=== PATIENT | male | born 1955 | race Caucasian/White ===

== ENCOUNTER 2022-12-14 19:50 | Emergency (ER) | payer OTHER ==
--- OUTSIDE RECORDS SUMMARY | 2022-12-14 19:57 | XMS REPORT | Continuity of Care Document ---
:1955 Author Organization Formerly [facility] t Address [address] [place] [address] Care Team Providers Name Role Phone Dilshad SUMMERS, Nitin Primary Care Physician Nitin Yung MD Attending Clinician Payers Payer Name Policy Type Policy Number Effective Date Expiration Date S ource Problems Condition Condition Condition Status Onset Resolution Last Treating Co mments Source Name Details Category Date Date Treatment Clinician Date Vitamin D Vitamin D Disease Active 2021-12 Overview: [facility] deficiency deficiency 1-[address] 00:[facility]: [facility] 00 note l might be different from the original. 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 8 X ray ; Degenerat heather change in the lumbar spine Fatty Fatty Disease Active Overview: [facility] i liver liver 05-[address] 00:00: [facility] 00 note l might be different from the original. 05/09/18 US: fatty infiltrat ion. Scattered simple cysts are seen in the liver. The largest is in the right hepatic lobe and measures 4.2 x 5.8 x 5.5 cm. Atrial Atrial Disease Recurre Overview: Metho di fibrillati fibrillati nce 04-[address] on on 00:00: g of this [facility]ospita 00 note l might be different from the original. S/p PM HLD HLD Disease Recurre [facility] (hyperlipi (hyperlipi nce 04-16 st demia) demia) 00:00: Hospita 00 l RLS RLS Disease Recurre [facility] (restless (restless nce 04-16 st legs legs 00:00: Hospita syndrome) syndrome) 00 l Anxiety Anxiety Disease Recurre Method i associated associated nce 04-16 with with 00:00: Hospita depression depression 00 l Aortic Aortic Disease Active [facility] valve valve 04-16 regurgitat regurgitat 00:00: Ho spita ion, ion, 00 l acquired acquired Obesity, Obesity, Disease Active Metho di unspecifie unspecifie 04-16 st d obesity d obesity 00:00: Hosp yovanny severity, severity, 00 l unspecifie unspecifie d obesity d obesity type type Pacemaker Pacemaker Disease Active Met hodi 04-16 st 00:00: Hospita 00 l JUVENAL on JUVENAL on Disease Active [facility] CPAP CPAP 04-16 00:00: Hospita 00 l Essential Essential Disease Recurre Me thodi hypertensi hypertensi nce 16 st on on 00:00: Hospita 00 l Gastroesop Gastroesop Disease Recurre [facility] hageal hageal nce 16 st reflux reflux 00:00: Hospita disease disease 00 l without without esophagiti esophagiti s s Allergies, Adverse Reactions, Alerts Allergy Allergy Status Severity Reaction(s) Onset Inactive Treating Comm ents Source Name Type Date Date Clinician Rosuvast Propensi Active Method i atin ty to 05-07 st adverse 00:00: Hospita reaction 00 l s to drug Family History Family Member Diagnosis Comments Start Date Stop Date Source Natural brother Colon cancer [facility] Natural brother Cancer [facility] Natural father Heart disease [facility] Natural mother Heart disease [facility] Natural sister Liver cancer [facility] Natural sister Other [facility] Social History Social Habit Start Date Stop Date Quantity Comments Source Alcohol intake 2022-10-04 2022-10-04 Current drinker [facility] 00:00:00 00:00:00 of alcohol Hospital (finding) Tobacco use and 2022-07-13 2022-07-13 Smokeless tobacco [facility] exposure 00:00:00 00:00:00 non-user Hospital Alcohol Comment 2017-03-28 2017-03-28 Socially [facility] 00:00:00 00:00:00 Hospital Sex [birth year] [facility] 00:00:00 00:00:00 Hospital Smoking Status Start Date Stop Date Source Never smoked tobacco [facility] Medications Ordered Filled Start Stop Current Ordering Indication Dosage Frequency Signature Comments Components Source Medication Medication Date Date Medication? Clinician (SIG) Name Name FLUoxetine 2021-12 Yes [id number] TAKE 1 [facility] (PROzac) 40 2-[address] MG capsule 00:00: (40 MG Hospi ta 00 TOTAL) BY l MOUTH DAILY. FLUoxetine 2021-12 Yes [id number] TAKE 1 [facility] (PROzac) 40 2-[address] MG capsule 00:00: (40 MG Hospi ta 00 TOTAL) BY l MOUTH DAILY. FLUoxetine 2021-12 Yes [id number] TAKE 1 [facility] (PROzac) 40 2-[address] MG capsule 00:00: (40 MG Hospi ta 00 TOTAL) BY l MOUTH DAILY. FLUoxetine 2021-12 Yes [id number] TAKE 1 [facility] (PROzac) 40 2-[address] MG capsule 00:00: (40 MG Hospi ta 00 TOTAL) BY l MOUTH DAILY. FLUoxetine 2021-12- No [id number] TAKE 1 [facility] (PROzac) 40 1-24 12-[address] MG capsule 00:00: 00:00 DAILY Hospi ta 00 :00 l FLUoxetine 2021-12- No [id number] TAKE 1 [facility] (PROzac) 40 1-24 12-[address] MG capsule 00:00: 00:00 DAILY Hospi ta 00 :00 l FLUoxetine 2021-12- No [id number] TAKE 1 [facility] (PROzac) 40 12-25 12- CAPSULE st MG capsule 00:00: 00:00 DAILY Hospi ta 00 :00 l FLUoxetine 2021-12- No [id number] TAKE 1 [facility] (PROzac) 40 12-25- CAPSULE st MG capsule 00:00: 00:00 DAILY Hospi ta 00 :00 l metoprolol 2021-12 Yes [id number] 25mg QD Take 1 M ethodi succinate 1-14 tablet (25 st XL 00:00: mg total) Hospita (TOPROL-XL) 00 by mouth l 25 mg 24 hr daily. tablet amIODarone 2021-12 Yes 200mg QD Take 1 Meth eva (PACERONE) 1-[address] 200 MG 00:00: (200 mg Hospita tablet 00 total) by l mouth daily. metoprolol 2021-12 Yes [id number] 25mg QD Take 1 M ethodi succinate 1-14 tablet (25 st XL 00:00: mg total) Hospita (TOPROL-XL) 00 by mouth l 25 mg 24 hr daily. tablet amIODarone 2021-12 Yes 200mg QD Take 1 Meth eva (PACERONE) 1-[address] 200 MG 00:00: (200 mg Hospita tablet 00 total) by l mouth daily. metoprolol 2021-12 Yes [id number] 25mg QD Take 1 M ethodi succinate 1-14 tablet (25 st XL 00:00: mg total) Hospita (TOPROL-XL) 00 by mouth l 25 mg 24 hr daily. tablet amIODarone 2021-12 Yes 200mg QD Take 1 Meth eva (PACERONE) 1-[address] 200 MG 00:00: (200 mg Hospita tablet 00 total) by l mouth daily. metoprolol 2021-12 Yes [id number] 25mg QD Take 1 M ethodi succinate 1-14 tablet (25 st XL 00:00: mg total) Hospita (TOPROL-XL) 00 by mouth l 25 mg 24 hr daily. tablet amIODarone 2021-12 Yes 200mg QD Take 1 Meth eva (PACERONE) 1-[address] 200 MG 00:00: (200 mg Hospita tablet 00 total) by l mouth daily. pramipexole 2021-12 Yes [id number] .75mg [id number] TAKE 1 [facility] (MIRAPEX) 0-[id number] 0.75 MG 00:00: 3D (0.75 MG Hospit a tablet 00 TOTAL) BY l MOUTH 3 (THREE) TIMES A DAY. pramipexole 2021-12 Yes [id number] .75mg Q.[id number] TAKE 1 [facility] (MIRAPEX) 0-[id number] 0.75 MG 00:00: 3D (0.75 MG Hospit a tablet 00 TOTAL) BY l MOUTH 3 (THREE) TIMES A DAY. pramipexole 2021-12 Yes [id number] .75mg Q.[id number] TAKE 1 [facility] (MIRAPEX) 0-[id number] 0.75 MG 00:00: 3D (0.75 MG Hospit a tablet 00 TOTAL) BY l MOUTH 3 (THREE) TIMES A DAY. pramipexole 2021-12 Yes [id number] .75mg Q.[id number] TAKE 1 [facility] (MIRAPEX) 0-[id number] 0.75 MG 00:00: 3D (0.75 MG Hospit a tablet 00 TOTAL) BY l MOUTH 3 (THREE) TIMES A DAY. FLUoxetine 2021- No [id number] 40mg QD Take 1 [facility] (PROzac) 40 8-12 11-[address] MG capsule 00:00: 00:00 (40 mg Hosp yovanny 00 :00 total) by l mouth daily. FLUoxetine 2021- No [id number] 40mg QD Take 1 [facility] (PROzac) 40 8-12 11-[address] MG capsule 00:00: 00:00 (40 mg Hosp yovanny 00 :00 total) by l mouth daily. FLUoxetine 2021- No [id number] 40mg QD Take 1 [facility] (PROzac) 40 8-12 11-[address] MG capsule 00:00: 00:00 (40 mg Hosp yovanny 00 :00 total) by l mouth daily. FLUoxetine 2021- No [id number] 40mg QD Take 1 [facility] (PROzac) 40 07-13 11-[address] MG capsule 00:00: 00:00 (40 mg Hosp yovanny 00 :00 total) by l mouth daily. pramipexole 2021- No [id number] .75mg Q.[id number] Take 1 [facility] (MIRAPEX) 07-13- [id number] tablet s t 0.75 MG 00:00: 00:00 3D (0.75 mg Hospi ta tablet 00 :00 total) by l mouth 3 (three) times a day. pramipexole 2021- No [id number] .75mg Q.[id number] Take 1 [facility] (MIRAPEX) 07-13 [id number] tablet s t 0.75 MG 00:00: 00:00 3D (0.75 mg Hospi ta tablet 00 :00 total) by l mouth 3 (three) times a day. pramipexole 2021- No [id number] .75mg Q.[id number] Take 1 [facility] (MIRAPEX) 07-13 [id number] tablet s t 0.75 MG 00:00: 00:00 3D (0.75 mg Hospi ta tablet 00 :00 total) by l mouth 3 (three) times a day. pramipexole 2021- No [id number] .75mg Q.[id number] Take 1 [facility] (MIRAPEX) 07-13 [id number] tablet s t 0.75 MG 00:00: 00:00 3D (0.75 mg Hospi ta tablet 00 :00 total) by l mouth 3 (three) times a day. FLUoxetine 2021- No [id number] 40mg QD Take 1 [facility] (PROzac) 40 07-04-[address] MG capsule 00:00: 00:00 (40 mg Hosp yovanny 00 :00 total) by l mouth daily. FLUoxetine 2021- No [id number] 40mg QD Take 1 [facility] (PROzac) 40 -02 06-[address] MG capsule 00:00: 00:00 (40 mg Hosp yovanny 00 :00 total) by l mouth daily. FLUoxetine 2021- No [id number] 40mg QD Take 1 [facility] (PROzac) 40 07-[address] MG capsule 00:00: 00:00 (40 mg Hosp yovanny 00 :00 total) by l mouth daily. FLUoxetine 2021- No [id number] 40mg QD Take 1 [facility] (PROzac) 40 07-[address] MG capsule 00:00: 00:00 (40 mg Hosp yovanny 00 :00 total) by l mouth daily. pramipexole 2021- No [id number] .75mg Q.[id number] Take 1 [facility] (MIRAPEX) 06-26 [id number] tablet s t 0.75 MG 00:00: 00:00 3D (0.75 mg Hospi ta tablet 00 :00 total) by l mouth 3 (three) times a day. pramipexole 2021- No [id number] .75mg Q.[id number] Take 1 [facility] (MIRAPEX) 06-26 [id number] tablet s t 0.75 MG 00:00: 00:00 3D (0.75 mg Hospi ta tablet 00 :00 total) by l mouth 3 (three) times a day. pramipexole 2021- No [id number] .75mg Q.[id number] Take 1 [facility] (MIRAPEX) 06-26 [id number] tablet s t 0.75 MG 00:00: 00:00 3D (0.75 mg Hospi ta tablet 00 :00 total) by l mouth 3 (three) times a day. pramipexole 2021- No [id number] .75mg Q.[id number] Take 1 [facility] (MIRAPEX) 06-26 [id number] tablet s t 0.75 MG 00:00: 00:00 3D (0.75 mg Hospi ta tablet 00 :00 total) by l mouth 3 (three) times a day. amIODarone No 200mg QD Take 1 Met hodi (PACERONE) 04-24 11-[address] 200 MG 00:00: 00:00 mouth Hospita tablet 00 :00 daily. l amIODarone 2021- No 200mg QD Take 1 Met hodi (PACERONE) 04-24-[address] 200 MG 00:00: 00:00 mouth Hospita tablet 00 :00 daily. l amIODarone 2021- No 200mg QD Take 1 Met hodi (PACERONE) 5-24 -[address] 200 MG 00:00: 00:00 mouth Hospita tablet 00 :00 daily. l amIODarone 2021- No 200mg QD Take 1 Met hodi (PACERONE) 24 -[address] 200 MG 00:00: 00:00 mouth Hospita tablet 00 :00 daily. l FLUoxetine 2021- No [id number] TAKE 1 [facility] (PROzac) 40 4-28 08-[address] MG capsule 00:00: 00:00 DAILY Hospi ta 00 :00 l FLUoxetine 2021- No [id number] TAKE 1 [facility] (PROzac) 40 4-28 08-[address] MG capsule 00:00: 00:00 DAILY Hospi ta 00 :00 l FLUoxetine 2021- No [id number] TAKE 1 [facility] (PROzac) 40 4-28 08-[address] MG capsule 00:00: 00:00 DAILY Hospi ta 00 :00 l FLUoxetine 2021- No [id number] TAKE 1 [facility] (PROzac) 40 4-28 08-[address] MG capsule 00:00: 00:00 DAILY Hospi ta 00 :00 l pramipexole 2020-12- No [id number] .75mg Q.[id number] Take 1 [facility] (MIRAPEX) 0-20 - [id number] tablet s t 0.75 MG 00:00: 00:00 3D (0.75 mg Hospi ta tablet 00 :00 total) by l mouth 3 (three) times a day. pramipexole 2020-12- No [id number] .75mg Q.[id number] Take 1 [facility] (MIRAPEX) 0-20 - [id number] tablet s t 0.75 MG 00:00: 00:00 3D (0.75 mg Hospi ta tablet 00 :00 total) by l mouth 3 (three) times a day. pramipexole 2020-12- No [id number] .75mg Q.[id number] Take 1 [facility] (MIRAPEX) 0-20 - [id number] tablet s t 0.75 MG 00:00: 00:00 3D (0.75 mg Hospi ta tablet 00 :00 total) by l mouth 3 (three) times a day. pramipexole 2020-12- No [id number] .75mg Q.[id number] Take 1 [facility] (MIRAPEX) 0-20 - [id number] tablet s t 0.75 MG 00:00: 00:00 3D (0.75 mg Hospi ta tablet 00 :00 total) by l mouth 3 (three) times a day. FLUoxetine 2020-12- No [id number] 40mg QD Take 1 [facility] (PROzac) 40 0-20 04-[address] MG capsule 00:00: 00:00 (40 mg Hosp yovanny 00 :00 total) by l mouth daily. FLUoxetine 2020-12- No [id number] 40mg QD Take 1 [facility] (PROzac) 40 0-20 04-[address] MG capsule 00:00: 00:00 (40 mg Hosp yovanny 00 :00 total) by l mouth daily. FLUoxetine 2020-12- No [id number] 40mg QD Take 1 [facility] (PROzac) 40 0-20 04-[address] MG capsule 00:00: 00:00 (40 mg Hosp yovanny 00 :00 total) by l mouth daily. FLUoxetine 2020-12- No [id number] 40mg QD Take 1 [facility] (PROzac) 40 0-20 04-[address] MG capsule 00:00: 00:00 (40 mg Hosp yovanny 00 :00 total) by l mouth daily. metoprolol 2021- No [id number] 25mg QD Take 1 [facility] succinate 03-10-14 tablet (25 st XL 00:00: 00:00 mg total) Hospita (TOPROL-XL) 00 :00 by mouth l 25 mg 24 hr daily. tablet metoprolol No [id number] 25mg QD Take 1 [facility] succinate 03-10 tablet (25 st XL 00:00: 00:00 mg total) Hospita (TOPROL-XL) 00 :00 by mouth l 25 mg 24 hr daily. tablet metoprolol No [id number] 25mg QD Take 1 [facility] succinate 03-10 tablet (25 st XL 00:00: 00:00 mg total) Hospita (TOPROL-XL) 00 :00 by mouth l 25 mg 24 hr daily. tablet metoprolol No [id number] 25mg QD Take 1 [facility] succinate 03-10 tablet (25 st XL 00:00: 00:00 mg total) Hospita (TOPROL-XL) 00 :00 by mouth l 25 mg 24 hr daily. tablet Immunizations Ordered Immunization Filled Immunization Date Status Commen ts Source Name Name FLUZONE HIGH-DOSE PF 2022-10-04 Completed Meth odist 00:00:00 [facility] PFIZER >12 YR 2022-10-04 Completed [facility] COVID-19 MRNA 00:00:00 [facility] BIVALENT VACCINATION FLUZONE HIGH-DOSE PF 2022-10-04 Completed Meth odist 00:00:00 [facility] PFIZER >12 YR 2022-10-04 Completed [facility] COVID-19 MRNA 00:00:00 [facility] BIVALENT VACCINATION FLUZONE HIGH-DOSE PF 2022-10-04 Completed Meth odist 00:00:00 [facility] PFIZER >12 YR 2022-10-04 Completed [facility] COVID-19 MRNA 00:00:00 [facility] BIVALENT VACCINATION FLUZONE HIGH-DOSE PF 2022-10-04 Completed Meth odist 00:00:00 [facility] PFIZER >12 YR 2022-10-04 Completed [facility] COVID-19 MRNA 00:00:00 Hospital BIVALENT VACCINATION PFIZER COVID-19 MRNA 2021-09-22 Completed Meth odist VACCINATION 00:00:00 [facility] PFIZER COVID-19 MRNA 2021-09-22 Completed Meth odist VACCINATION 00:00:00 [facility] PFIZER COVID-19 MRNA 2021-09-22 Completed Meth odist VACCINATION 00:00:00 [facility] PFIZER COVID-19 MRNA 2021-09-22 Completed Meth odist VACCINATION 00:00:00 [facility] Pneumococcal 2021-03-10 Completed [facility] Polysaccharide 00:00:00 [facility] Pneumococcal 2021-03-10 Completed [facility] Polysaccharide 00:00:00 [facility] Pneumococcal 2021-03-10 Completed [facility] Polysaccharide 00:00:00 [facility] Pneumococcal 2021-03-10 Completed [facility] Polysaccharide 00:00:00 [facility] PFIZER COVID-19 MRNA 2021-01-26 Completed Meth odist VACCINATION 00:00:00 [facility] PFIZER COVID-19 MRNA 2021-01-26 Completed Meth odist VACCINATION 00:00:00 [facility] PFIZER COVID-19 MRNA 2021-01-26 Completed Meth odist VACCINATION 00:00:00 [facility] PFIZER COVID-19 MRNA 2021-01-26 Completed Meth odist VACCINATION 00:00:00 [facility] PFIZER COVID-19 MRNA 2021-01-05 Completed Meth odist VACCINATION 00:00:00 [facility] PFIZER COVID-19 MRNA 2021-01-05 Completed Meth odist VACCINATION 00:00:00 [facility] PFIZER COVID-19 MRNA 2021-01-05 Completed Meth odist VACCINATION 00:00:00 [facility] PFIZER COVID-19 MRNA 2021-01-05 Completed Meth odist VACCINATION 00:00:00 [facility] FLUZONE HIGH-DOSE PF 2020-01-11 Completed Meth odist 00:00:00 [facility] Pneumococcal 2020-01-11 Completed [facility] Conjugate 13-Valent 00:00:00 Hospi fang FLUZONE HIGH-DOSE PF 2020-01-11 Completed Meth odist 00:00:00 [facility] Pneumococcal 2020-01-11 Completed [facility] Conjugate 13-Valent 00:00:00 Hospi fang FLUZONE HIGH-DOSE PF 2020-01-11 Completed [facility] odist 00:00:00 Hospital Pneumococcal 2020-01-11 Completed [facility] Conjugate 13-Valent 00:00:00 Hospi fang FLUZONE HIGH-DOSE PF 2020-01-11 Completed Meth odist 00:00:00 Hospital Pneumococcal 2020-01-11 Completed [facility] Conjugate 13-Valent 00:00:00 Hospi fang FLUBLOK QUAD PF 2018-11-20 Completed [facility] 00:00:00 [facility] FLUBLOK QUAD PF 2018-11-20 Completed [facility] 00:00:00 [facility] FLUBLOK QUAD PF 2018-11-20 Completed [facility] 00:00:00 Hospital FLUBLOK QUAD PF 2018-11-20 Completed [facility] 00:00:00 [facility] Zoster 2018-04-24 Completed [facility] 00:00:00 Hospital Zoster 2018-04-24 Completed [facility] 00:00:00 Hospital Zoster 2018-04-24 Completed [facility] 00:00:00 Hospital Zoster 2018-04-24 Completed [facility] 00:00:00 Hospital Vital Signs Vital Name Observation Time Observation Value Comments Source Diastolic blood 2022-10-04 18:05:00 75 mm[Hg] [facility] pressure Heart rate 2022-10-04 18:05:00 77 /min [facility] Body temperature 2022-10-04 18:05:00 37.28 [facility] Respiratory rate 2022-10-04 18:05:00 18 /min [facility] Body height 2022-10-04 18:05:00 177.8 cm [facility] Body weight 2022-10-04 18:05:00 108.863 kg [facility] BMI 2022-10-04 18:05:00 34.44 kg/m2 [facility] Oxygen saturation in 2022-10-04 18:05:00 96 /min [facility] Arterial blood by Pulse oximetry Systolic blood 2022-10-04 18:05:00 120 mm[Hg] [facility] pressure Procedures Procedure Date / Time Performed Performing Clinician [facility] e ALBUMIN WITH CREATININE 2022-10-04 18:36:00 [facility] AND RATIO, RANDOM URINE PROSTATE SPECIFIC 2022-10-04 18:36:00 [facility] ANTIGEN VITAMIN D 25 HYDROXY 2022-10-04 18:36:00 [facility] LEVEL URINALYSIS, AUTOMATED 2022-10-04 18:36:00 [facility] WITH MICROSCOPY THYROID STIMULATING 2022-10-04 18:36:00 [facility] HORMONE T4, FREE 2022-10-04 18:36:00 [facility] LIPID PANEL 2022-10-04 18:36:00 [facility] HEPATIC FUNCTION PANEL 2022-10-04 18:36:00 [facility] HEMOGLOBIN A1C 2022-10-04 18:36:00 [facility] spital CBC WITH PLATELET AND 2022-10-04 18:36:00 [facility] DIFFERENTIAL BASIC METABOLIC PANEL 2022-10-04 18:36:00 [facility] ESTIMATED GFR 2022-10-04 18:36:00 [facility] spital Plan of Care Planned Activity Planned Date Details Comments Source Future Scheduled 2022-12-06 HEPATITIS B VACCINES Met [facility] Test 09:23:36 (1 of 3 - Risk 3-dose series) [code = HEPATITIS B VACCINES (1 of 3 - Risk 3-dose series)] Future Scheduled 2022-12-06 SHINGLES VACCINES (2 Met [facility] Test 09:23:36 of 3) [code = SHINGLES VACCINES (2 of 3)] Future Scheduled 2022-12-[address] [facility] Test 09:23:36 [code = COLONOSCOPY SCREENING] Future Scheduled 2022-12-06 HEPATITIS B VACCINES Met [facility] Test 09:23:36 (1 of 3 - Risk 3-dose series) [code = HEPATITIS B VACCINES (1 of 3 - Risk 3-dose series)] Future Scheduled 2022-12-06 SHINGLES VACCINES (2 Met [facility] Test 09:23:36 of 3) [code = SHINGLES VACCINES (2 of 3)] Future Scheduled 2022-12-[address] [facility] Test 09:23:36 [code = COLONOSCOPY SCREENING] Future Scheduled 2022-12-04 HEPATITIS B VACCINES Met [facility] Test 11:34:31 (1 of 3 - Risk 3-dose series) [code = HEPATITIS B VACCINES (1 of 3 - Risk 3-dose series)] Future Scheduled 2022-12-04 SHINGLES VACCINES (2 [facility] Test 11:34:31 of 3) [code = SHINGLES VACCINES (2 of 3)] Future Scheduled 2022-12-[address] [facility] Test 11:34:31 [code = COLONOSCOPY SCREENING] Future Scheduled 2022-12-04 HEPATITIS B VACCINES Met [facility] Test 11:34:31 (1 of 3 - Risk 3-dose series) [code = HEPATITIS B VACCINES (1 of 3 - Risk 3-dose series)] Future Scheduled 2022-12-04 SHINGLES VACCINES (2 Met [facility] Test 11:34:31 of 3) [code = SHINGLES VACCINES (2 of 3)] Future Scheduled 2022-12-[address] [facility] Test 11:34:31 [code = COLONOSCOPY SCREENING] Encounters Start End Encounter Admission Attending Care Care Encounter Source Date/Time Date/Time Type Type Clinicians Facility Department ID 2022-11-09 2022-11-09 Refill Stef[facility], 1.2.840.1 [id number] [facility]i 00:00:00 00:00:[id number] 3.430.2.7 Hospit a .3.092563 l .8 2022-11-09 2022-11-09 Refill [facility], 1.2.840.1 [id number] Methodi 00:00:00 00:00:[id number] 3.430.2.7 Hospit a .3.498435 l .8 2022-10-25 2022-10-25 Refill [facility], 1.2.840.1 [id number] [facility] 00:00:00 00:00:[id number] 3.430.2.7 Hospit a .3.911249 l .8 2022-10-25 2022-10-25 Refill [facility], 1.2.840.1 [id number] [facility] 00:00:00 00:00:[id number] 3.430.2.7 Hospit a .3.511417 l .8 2022-10-15 2022-10-15 Refill [facility], 1.2.840.1 [id number] [facility] 00:00:00 00:00:[id number] 3.430.2.7 Hospit a .3.116773 l .8 2022-10-15 2022-10-15 Refill [facility], 1.2.840.1 [id number] [facility] 00:00:00 00:00:[id number] 3.430.2.7 Hospit a .3.337160 l .8 2022-10-15 2022-10-15 Refill [facility], 1.2.840.1 [id number] Methodi 00:00:00 00:00:[address] 3.430.2.7 Hospit a .3.281514 l .8 2022-10-15 2022-10-15 Refill [facility], 1.2.840.1 [id number] Methodi 00:00:00 00:00:[id number] 3.430.2.7 Hospit a .3.904437 l .8 2022-10-04 2022-10-04 Lab [facility], 1.2.840.1 [id number] Methodi 13:45:00 13:50:[address] 3.430.2.7 Hospit a .3.678089 l .8 2022-10-04 2022-10-04 Lab [facility], 1.2.840.1 [id number] Methodi 13:45:00 13:50:[address] 3.430.2.7 Hospit a .3.021867 l .8 2022-10-04 2022-10-04 Office [facility], 1.2.840.1 [id number] Methodi 13:15:00 13:34:42 Visit Branka [id number] 3.430.2.7 Hospit a .3.442185 l .8 2022-10-04 2022-10-04 Office [facility], 1.2.840.1 [id number] Methodi 13:15:00 13:34:42 Visit Branka 11211.1.[address] 3.430.2.7 Hospit a .3.461160 l .8 2022-09-28 [facility] [id number] Methodi 00:00:00 00:00:[address] 3.430.2.7 Hospit a .3.658303 l .8 2022-09-28 2022-09-28 Refill [facility], 1.2.840.1 [id number] Methodi 00:00:00 00:00:[address] 3.430.2.7 Hospit a .3.799805 l .8 2022-09-03 2022-09-03 Refill [facility], 1.2.840.1 [id number] Methodi 00:00:00 00:00:[address] 3.430.2.7 Hospit a .3.883129 l .8 2022-09-03 2022-09-03 Refill [facility], 1.2.840.1 [id number] Methodi 00:00:00 00:00:[address] 3.430.2.7 Hospit a .3.360832 l .8 2022-07-13 2022-07-13 [facility], 1.2.840.1 [id number] Methodi 09:00:00 09:13:28 ne Branka [address]001.1.[address] 3.430.2.7 Hospit a .3.228742 l .8 2022-07-13 2022-07-13 [facility], 1.2.840.1 [id number] Methodi 09:00:00 09:13:28 ne Branka 36609.1.[address] 3.430.2.7 Hospit a .3.791754 l .8 2022-04-24 2022-04-[facility] 1.2.840.1 [id number] Methodi 00:00:00 00:00:[id number] 3.430.2.7 Hospit a .3.484352 l .8 2022-04-24 2022-04-24 Refill [facility], 1.2.840.1 [id number] Methodi 00:00:00 00:00:[id number] 3.430.2.7 Hospit a .3.985404 l .8 2022-03-29 2022-03-29 Refill [facility], 1.2.840.1 [id number] Methodi 00:00:00 00:00:[address] 3.430.2.7 Hospit a .3.728600 l .8 2022-03-29 2022-03-29 Refill [facility], 1.2.840.1 [id number] Methodi 00:00:00 00:00:[address] 3.430.2.7 Hospit a .3.770969 l .8 2021-09-20 2021-09-20 Outpatient [facility] [id number] [place] 00:00:00 00:00:00 BRANKA [address] 2021-03-10 2021-03-10 Outpatient [facility] [id number] [place] 00:00:00 00:00:00 BRANKA [address] 2021-03-10 2021-03-10 Outpatient [facility] [id number] [place] 00:00:00 00:00:[address] 2020-07-11 2020-07-11 Outpatient [facility] [id number] [place] 00:00:00 00:00:00 BRANKA [address] Results This patient has no known results.
[2022-12-14 20:51] LABS: Urine Blood Trace-intact (Negative); Urine Glucose Negative (Negative); Urine Protein 2+ (Negative)
[2022-12-14] MEDS ORDERED: TAMSULOSIN 0.4 MG SR CAP ONE (22:13)
--- NOTE | 2022-12-14 23:02 | ER ---
Nurse's Notes [facility] Name: Brett Meyer Age: 67 yrs Sex: Male : 1955 Arrival Date: 12/14/2022 Time: 19:51 Bed External Waiting Private MD: Diagnosis: Kidney Stone/ Calculus in urethra Presentation: 12/14 20:20 Chief complaint: Patient states: intermittent abdominal pain and left flank pain since kb3 Saturday. Appointment with GI today and CT was done. Pt received call to come to ER due to 4mm kidney stone in left ureter. PT denies urinary symptoms. Reports dry-heaving on Saturday, no further episodes of N/V since. Coronavirus screen: Vaccine status: Patient reports receiving the 2nd dose of the covid vaccine. Client denies travel out of the [place] in the last 14 days. Ebola Screen: Patient negative for fever greater than or equal to 101.5 degrees Fahrenheit, and additional compatible Ebola Virus Disease symptoms Patient denies exposure to infectious person. Patient denies travel to an Ebola-affected area in the 21 days before illness onset. Initial Sepsis Screen: Does the patient meet any 2 criteria? No. Patient's initial sepsis screen is negative. Does the patient have a suspected source of infection? No. Patient's initial sepsis screen is negative. Risk Assessment: Do you want to hurt yourself or someone else? Patient reports no desire to harm self or others. Onset of symptoms was December 08, 2022. 20:20 Method Of Arrival: Ambulatory kb3 20:20 Acuity: JOSE ROBERTO 3 kb3 Triage Assessment: 20:22 General: Appears in no apparent distress. Behavior is calm, cooperative. Pain: kb3 Complains of pain in left low back Pain does not radiate. Pain currently is 5 out of 10 on a pain scale. GI: Reports lower abdominal pain, constipation, nausea. : Denies burning with urination, inability to void, incontinence, pain urinary frequency, urgency. Historical: - Allergies: 20:22 No Known Allergies; kb3 - PMHx: 20:22 Atrial fibrillation; Depressive disorder; Restless Leg Syndrome; kb3 - PSHx: 20:22 Pacermaker; Tonsillectomy; Right Thumb surgery; kb3 - Immunization history:: Adult Immunizations up to date, Client reports receiving the 2nd dose of the Covid vaccine, Last tetanus immunization: up to date. - Social history:: Smoking status: Patient denies any tobacco usage or history of. Screenin:00 [facility] ED Fall Risk Assessment (Adult) History of falling in the last 3 months, tw5 including since admission. Abuse screen: Denies threats or abuse. Denies injuries from another. Nutritional screening: No deficits noted. Tuberculosis screening: No symptoms or risk factors identified. Assessment: 20:48 General: Appears in no apparent distress. Behavior is calm, cooperative, appropriate tw5 for age, Patient standing at the bedside on phone " trying to get some information for the doctor.". 21:00 General: Reports. Pain: Pain currently is 2 out of 10 on a pain scale. Neuro: Level of tw5 Consciousness is awake, alert, obeys commands, Oriented to person, place, time, situation. Cardiovascular: No deficits noted. Respiratory: No deficits noted. : Reports "when I was getting a urine sample it actually hurt to stop by stream so I didn't fill the cup too much. That was the first time it has hurt when urinating.". 22:12 Reassessment: Patient appears in no apparent distress at this time. No changes from tw5 previously documented assessment. Patient and/or family updated on plan of care and expected duration. Pain level reassessed. Patient is alert, oriented x 3, equal unlabored respirations, skin warm/dry/pink. 23:01 Reassessment: Patient appears in no apparent distress at this time. No changes from tw5 previously documented assessment. Patient and/or family updated on plan of care and expected duration. Pain level reassessed. Patient is alert, oriented x 3, equal unlabored respirations, skin warm/dry/pink. Vital Signs: 20:20 BP 139 / 71; Pulse 69; Resp 20; Temp 98.7; Pulse Ox 99% ; Weight 108.86 kg; Height 5 kb3 ft. 10 in. (177.80 cm); Pain 5/10; 21:00 BP 128 / 52; Pulse 68; Resp 18; Pulse Ox 100% on R/A; Pain 2/10; tw5 22:12 BP 120 / 66; Pulse 68; Resp 18; Pulse Ox 100% on R/A; Pain 2/10; tw5 20:20 Body Mass Index 34.44 (108.86 kg, 177.80 cm) kb3 ED Course: 19:51 Patient arrived in ED. jj6 19:56 Teddy Gee MD is Attending Physician. kdr 20:16 [place] Ca is Primary Nurse. tw5 20:22 Triage completed. kb3 20:22 Arm band placed on right wrist. Patient placed in an exam room, on a stretcher. kb3 21:00 Patient has correct armband on for positive identification. Placed in gown. Bed in low tw5 position. Call light in reach. Side rails up X 1. Adult w/ patient. Pulse ox on. NIBP on. Door closed. Noise minimized. Moved to private room. Warm blanket given. Verbal reassurance given. 21:00 No provider procedures requiring assistance completed. tw5 23:01 Patient did not have IV access during this emergency room visit. tw5 Administered Medications: 22:12 Drug: Flomax (tamsulosin) 0.4 mg Route: PO; tw5 Medication: 21:00 VIS not applicable for this client. tw5 Outcome: 23:01 Discharged to home ambulatory, with family. tw5 23:01 Condition: good 23:01 Discharge instructions given to patient, Instructed on discharge instructions, follow up and referral plans. Demonstrated understanding of instructions, follow-up care, medications, Prescriptions given X 3. 23:02 Discharge ordered by . tw5 23:02 Patient left the ED. tw5 Signatures: Teddy Gee MD MD kdr Wood, Tiffany tw5 Kesha Pratt jj6 Vikki Harris, RN RN kb3
[2022-12-14 23:06] VITALS: TEMP 98.7
[2022-12-14 23:07] VITALS: O2SAT 100
[2022-12-14 23:08] VITALS: BP 120/66
--- NOTE | 2022-12-15 23:02 | EDPHYS ---
Physician Documentation [facility] [place], [place] Name: Brett Meyer Age: 67 yrs Sex: Male : 1955 Arrival Date: 12/14/2022 Time: 19:51 Bed External Waiting Private MD: ED Physician Teddy Gee HPI: 12/14 23:51 This 67 yrs old Male presents to ER via Ambulatory with complaints of Possible Kidney kdr Stone. 23:51 The patient began to have left flank pain last weekend. He had sigifincat pain for a kdr day or so and then it has . 23:55 Onset: The symptoms/episode began/occurred gradually, 1 week(s) ago. Severity of kdr symptoms: At their worst the symptoms were severe incapacitating 6 day(s) ago, in the emergency department the symptoms have improved markedly. The patient has not experienced similar symptoms in the past. 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 The patient to an outside MD/GI who did a CT scan and was noted to have a 4 mm left UVJ stone with mild hydro/stranding around the left kidney. The right kidney was normal. The patient had also had blood work done. All was normal except for a Cr of 2.0. A baseline value was not available fromt he records the patient had available to him.. Historical: - Allergies: 20:22 No Known Allergies; kb3 - PMHx: 20:22 Atrial fibrillation; Depressive disorder; Restless Leg Syndrome; kb3 - PSHx: 20:22 Pacermaker; Tonsillectomy; Right Thumb surgery; kb3 - Immunization history:: Adult Immunizations up to date, Client reports receiving the 2nd dose of the Covid vaccine, Last tetanus immunization: up to date. - Social history:: Smoking status: Patient denies any tobacco usage or history of. ROS: 23:55 Constitutional: Negative for fever, chills, and weight loss, Eyes: Negative for injury, kdr pain, redness, and discharge, Neck: Negative for injury, pain, and swelling, Cardiovascular: Negative for chest pain, palpitations, and edema, Respiratory: Negative for shortness of breath, cough, wheezing, and pleuritic chest pain, Abdomen/GI: Negative for abdominal pain, nausea, vomiting, diarrhea, and constipation, : Negative for injury, bleeding, discharge, and swelling, MS/Extremity: Negative for injury and deformity, Skin: Negative for injury, rash, and discoloration, Neuro: Negative for headache, weakness, numbness, tingling, and seizure activity. Psych: Negative for depression, anxiety, suicide ideation, homicidal ideation, and hallucinations, Allergy/Immunology: Negative for hives, rash, and allergies, Endocrine: Negative for neck swelling, polydipsia, polyuria, polyphagia, and marked weight changes, Hematologic/Lymphatic: Negative for swollen nodes, abnormal bleeding, and unusual bruising. 23:55 Back: Positive for flank pain, on the left, of the left mid back. Exam: 23:55 Constitutional: This is a well developed, well nourished patient who is awake, alert, kdr and in no acute distress. Head/Face: Normocephalic, atraumatic. Eyes: Pupils equal round and reactive to light, extra-ocular motions intact. Lids and lashes normal. Conjunctiva and sclera are non-icteric and not injected. Cornea within normal limits. Periorbital areas with no swelling, redness, or edema. Neck: Trachea midline, no thyromegaly or masses palpated, and no cervical lymphadenopathy. Supple, full range of motion without nuchal rigidity, or vertebral point tenderness. No Meningismus. Chest/axilla: Normal chest wall appearance and motion. Nontender with no deformity. No lesions are appreciated. Cardiovascular: Regular rate and rhythm with a normal S1 and S2. No gallops, murmurs, or rubs. Normal PMI, no JVD. No pulse deficits. Respiratory: Lungs have equal breath sounds bilaterally, clear to auscultation and percussion. No rales, rhonchi or wheezes noted. No increased work of breathing, no retractions or nasal flaring. Abdomen/GI: Soft, non-tender, with normal bowel sounds. No distension or tympany. No guarding or rebound. No evidence of tenderness throughout. Back: No spinal tenderness. No costovertebral tenderness. Full range of motion. Skin: Warm, dry with normal turgor. Normal color with no rashes, no lesions, and no evidence of cellulitis. MS/ Extremity: Pulses equal, no cyanosis. Neurovascular intact. Full, normal range of motion. Neuro: Awake and alert, GCS 15, oriented to person, place, time, and situation. Cranial nerves II-XII grossly intact. Motor strength 5/5 in all extremities. Sensory grossly intact. Cerebellar exam normal. Normal gait. Psych: Awake, alert, with orientation to person, place and time. Behavior, mood, and affect are within normal limits. Vital Signs: 20:20 BP 139 / 71; Pulse 69; Resp 20; Temp 98.7; Pulse Ox 99% ; Weight 108.86 kg; Height 5 kb3 ft. 10 in. (177.80 cm); Pain 5/10; 21:00 BP 128 / 52; Pulse 68; Resp 18; Pulse Ox 100% on R/A; Pain 2/10; tw5 22:12 BP 120 / 66; Pulse 68; Resp 18; Pulse Ox 100% on R/A; Pain 2/10; tw5 20:20 Body Mass Index 34.44 (108.86 kg, 177.80 cm) kb3 MDM: 23:45 Patient medically screened. kdr 23:55 Data reviewed: vital signs, nurses notes. Management of patient was discussed with the [facility] following: Investor Relations Manager: telma. I considered the following discharge prescriptions or medication management in the emergency department Antibiotics: At this time antibiotics are not recommended, Antihypertensives: At this time antihypertensives are not recommended. We recommend home blood pressure checks and following up with primary care provider, Antivirals: At this time, antivirals are not recommended, Pain Medications: At this time, prescription pain medications are not recommended, Medications were administered in the Emergency Department. See MAR. Independent interpretation of the following test(s) in the Emergency Department CT Scan: My interpretation is Left UVJ 4 mm stone from outside report. Test considered but Not performed: Labs: US for infection. External Records Reviewed: Outpatient record: CBC, chem. Outpatient labs: CBC, chem, US LFT. Outpatient radiology: CT scan. Counseling: I had a detailed discussion with the patient and/or guardian regarding: the historical points, exam findings, and any diagnostic results supporting the discharge/admit diagnosis, lab results, radiology results. 12/14 20:51 Order name: Urine Dipstick-Ancillary; Complete Time: 21:34 EDNJ 12/14 20:40 Order name: Urine Dipstick-Ancillary (obtain specimen); Complete Time: 20:47 kdr Administered Medications: 22:12 Drug: Flomax (tamsulosin) 0.4 mg Route: PO; tw5 Disposition Summary: 12/14/22 23:02 Discharge Ordered Location: Home tw Condition: Stable tw5 Diagnosis - Kidney Stone/ Calculus in urethra tw5 Discharge Instructions: - Discharge Summary Sheet kdr - Kidney Stones, [id number] kdr Forms: - Medication Reconciliation Form tw5 - Thank You Letter 5 - Antibiotic Education tw5 - Prescription Opioid Use tw5 Prescriptions: - Flomax 0.4 mg Oral capsule - take 1 capsule by ORAL route once daily 1/2 hour following the same meal each kdr day; 15 capsule; Refills: 0, Product Selection Permitted - Zofran 4 mg Oral Tablet - take 1 tablet by ORAL route every 4-6 hours As needed; 16 tablet; Refills: 0, kdr Product Selection Permitted - Tramadol 50 mg Oral Tablet - take 1 tablet by ORAL route every 4-6 hours As needed as needed; 12 tablet; kdr Refills: 0, Product Selection Permitted Signatures: Teddy Gee MD MD [facility] [place] 5 Vikki Harris, RN RN kb3
== END 2022-12-14 23:02 | disposition home or self-care (01) ==
LOC: ER 19:50
DX: N20.0 Calculus of kidney (principal); N21.1 Calculus in urethra; Z95.0 Presence of cardiac pacemaker
CPT/HCPCS: 81003; 99283